=== PATIENT | female | born 1955 | race Caucasian/White ===

== ENCOUNTER → 2020-06-30 | Outpatient (CLI) | payer OTHER ==
--- NOTE | 2020-06-30 12:38 | RAD ---
EXAM: Lumbar spine, 3 views. HISTORY: Pain. COMPARISON: None. FINDINGS: 3 views of the lumbar spine are obtained. There is lumbar levoscoliosis centered at L3. The re is grade 1 anterolisthesis of L4 on L5, measuring 4 mm. There is 3 mm retrolisthesis of L1 on L2 a nd L2 on L3. There is multilevel endplate remodeling. There is disc space narrowing predominantly at L1-L2. There is facet arthropathy predominantly along the right aspect of L4-L5. 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 IMPRESSION: 1. Multilevel degenerative change, described above. 2. Lumbar scoliosis and mild multilevel listhesis. 3. No acute osseous finding. Electronically signed by: Berna Sales MD (06/30/2020 12:35 PM) [id number]
== END ==
LOC: RAD 11:47
PROVIDERS: ATTEND Nurse Practitioner Family
DX: M47.816 Spondylosis without myelopathy or radiculopathy, lumbar region (principal); M43.16 Spondylolisthesis, lumbar region
CPT/HCPCS: 72100

== ENCOUNTER → 2020-10-27 | Outpatient (CLI) | payer OTHER ==
--- NOTE | 2020-10-27 15:36 | RAD ---
EXAM: Left wrist, 3 views. HISTORY: Fall. Pain. COMPARISON: None. FINDINGS: 3 views of the left wrist are obtained. There is no acute fracture, dislocation or subluxat ion. There are small suspected cysts within the carpal bones. There is minimal first carpometacarpal joint and first metacarpal phalangeal joint spurring. There is no foreign body. IMPRESSION: No acute osseous finding. Electronically signed by: Berna Sales MD (10/27/2020 3:33 PM) [id number]
== END ==
LOC: RAD 15:12
PROVIDERS: ATTEND Physician Assistant
DX: S63.502A Unspecified sprain of left wrist, initial encounter (principal); M25.532 Pain in left wrist; W11.XXXA Fall on and from ladder, initial encounter; Y93.89 Activity, other specified; Y92.9 Unspecified place or not applicable; Y99.8 Other external cause status
CPT/HCPCS: 73110